=== PATIENT | male | born 1980 ===

== ENCOUNTER 2017-10-10 01:17 | Emergency (ER) | payer OTHER ==
[2017-10-10 01:23] VITALS: TEMP 98.1
[2017-10-10] MEDS ORDERED: Silver Sulfadiazine 1% Cream (20 gm) TOP STA (01:42)
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
[2017-10-10] MEDS ORDERED: Tramadol 25 mg ONE (01:46)
[2017-10-10] MEDS ORDERED: Silver Sulfadiazine 1% Cream (20 gm) ONE (01:48)
[2017-10-10 02:38] VITALS: BP 122/78; PULSE 82; RESP 18; O2SAT 99
== END 2017-10-10 02:35 | disposition home or self-care (01) ==
LOC: C.ER 01:17
DX: T23.262A Burn of second degree of back of left hand, initial encounter (principal); X08.8XXA Exposure to other specified smoke, fire and flames, initial encounter; Y92.009 Unspecified place in unspecified non-institutional (private) residence as the place of occurrence of the external cause